=== PATIENT | female | born 1985 | race Two or more races ===

== ENCOUNTER 2023-02-28 03:36 | Emergency (ER) | payer OTHER ==
[~2023-02-28] VITALS: Ht 162.6 cm; Wt 50.3 kg
[2023-02-28] MEDS ORDERED: ONDANSETRON ODT8 MG PO (08:26)
== END 2023-02-28 09:53 | disposition home or self-care (01) ==
LOC: ER 03:36
DX: R53.81 Other malaise (principal); R00.2 Palpitations; Z20.822 Contact with and (suspected) exposure to COVID-19